=== PATIENT | male | born 1980 | race Caucasian/White ===

== ENCOUNTER → 2018-02-18 | Outpatient (REF) | payer OTHER ==
[2018-02-18 13:16] LABS: PLATELET COUNT, AUTOMATED 190 K/uL (150-450)
== END ==
PROVIDERS: ATTEND Family Medicine
DX: R31.9 Hematuria, unspecified (principal); R42 Dizziness and giddiness
CPT/HCPCS: 82040; 82247; 82310; 82374; 82435; 82565; 82947; 84075; 84132; 84155; 84295; 84450; 84460; 84520; 85025; 87088

== ENCOUNTER → 2018-02-18 | Outpatient (CLI) | payer OTHER ==
--- NOTE | 2018-02-18 14:25 | RADIOLOGY IMAGING REPORT ---
FACILITY: [facility] - [place], [place] PATIENT NAME: Dangelo Pinon : 1980 MR: [id number] V: [id number] EXAM DATE: ORDERING PHYSICIAN: CRISTIANO AGRAWAL TECHNOLOGIST: Location: [facility] [place] Patient: Dangelo Pinon : 1980 Visit/Account:[id number] Date of Sevice: 02/18/2018 CT abdomen and pelvis without and with IV contrast Indication: Hematuria. Right flank pain for one day. Comparison: None available. . Technique: Axial CT images were obtained through the abdomen and pelvis prior to and during injecti on of nonionic iodinated intravenous contrast. Reformatted coronal and sagittal images were also obta ined. One of the following dose optimization techniques was utilized in the performance of this exam: Autom ated exposure control; adjustment of the mA and/or kV according to the patient's size; or use of an i terative reconstruction technique. Specific details can be referenced in the facility's radiology C T exam operational policy. Contrast: 75 ml of Isovue-370 IV contrast. Findings: Lower lung otoole: Limited views lower lung field are unremarkable. Liver: No focal parenchymal abnormality of the liver. Biliary: Gallbladder appears unremarkable as well as the intra and extra hepatic biliary system. Pancreas: Normal appearance. Spleen: Normal appearance. Adrenal glands: Unremarkable. Kidneys / retroperitoneum: There is a 1 to 2 mm stone in each kidney collecting system without hydron ephrosis. No other stones are identified. Both kidneys show normal symmetric enhancement without foca l lesions. The ureters show no dilatation or stones. Bowel / peritoneum / mesenteries: The visualized gastrointestinal tract, including the appendix, with in normal limits. No free air, free fluid, fluid collections or areas of inflammation. Tiny umbilical hernia containing fat. Lymph node assessment: No pathologic adenopathy identified. Pelvic structures: Urinary bladder shows no stones or focal abnormality. There are couple vascular phleboliths present in left side of the pelvis. The remaining pelvic structures visualized within no rmal limits. Vessels: No significant atherosclerotic calcifications seen throughout a nonaneurysmal abdominal aort a and branches. Musculoskeletal / Body wall: No acute or aggressive osseous abnormality. IMPRESSION: 1. Each kidney shows a 1 to 2 mm stone without hydronephrosis. No renal lesions. No abnormality of th e ureters or urinary bladder. I called report to CRISTIANO AGRAWAL at 02/18/2018 2:19 PM. Report Dictated By: Yogi Navarro at 02/18/2018 2:07 PM Report E-Signed By: Yogi Navarro at 02/18/2018 2:20 PM WSN:[id number]
== END ==
LOC: CT 12:40
PROVIDERS: ATTEND Family Medicine
DX: R31.9 Hematuria, unspecified (principal); N20.0 Calculus of kidney
CPT/HCPCS: 74178

== ENCOUNTER → 2018-11-07 | Outpatient (CLI) | payer OTHER ==
--- NOTE | 2018-11-07 12:05 | RADIOLOGY IMAGING REPORT ---
FACILITY: [facility] [place]IENT NAME: Dangelo Pinon : 1980 MR: [id number] V: [id number] EXAM DATE: ORDERING PHYSICIAN: [facility] TECHNOLOGIST: Location: [facility] Patient: Dangelo Pinon : 1980 Visit/Account:[id number] Date of Sevice: 11/07/2018 MR SPINE CERVICAL W/O CON COMPARISON: None Additional pertinent history: Injury in July with neck pain. Technique: Multiplanar multisequence cervical spine MRI was performed without gadolinium enhancement. FINDINGS: Vertebral body height and alignment: Mild reversal of normal cervical lordosis centered at C5-C6. Vertebral marrow signal: Negative Vertebral bodies: Negative Cervical spinal cord signal, craniocervical junction and visualized posterior fossa: Negative Surrounding soft tissues: Negative Inspection of the disc spaces reveal the following: C1-C2: Negative C2-C3: Negative C3-C4: Negative C4-C5: Minimal circumferential disc bulging with facet hypertrophic changes. No significant canal or neural foraminal narrowing. C5-C6: Circumferential disc bulging with facet and uncovertebral degenerative changes. Mild bilatera l neural foraminal narrowing without canal stenosis. C6-C7: Minimal circumferential disc bulging with facet hypertrophic changes. No significant canal or neural foraminal narrowing. C7-T1: Negative Impression: 1. Spondylitic change involving the lower cervical spine as discussed above. 2. Findings contribute to mild bilateral neural foraminal narrowing at C5-C6. 3. No underlying canal stenosis. Report Dictated By: Maycol Wilson MD at 11/07/2018 11:57 AM Report E-Signed By: Maycol Wilson MD at 11/07/2018 12:01 PM WSN:[id number]
== END ==
LOC: MRI 00:48
DX: M47.892 Other spondylosis, cervical region (principal)
CPT/HCPCS: 72141

== ENCOUNTER → 2019-04-18 | Outpatient (CLI) | payer OTHER ==
--- NOTE | 2019-04-18 09:30 | RADIOLOGY IMAGING REPORT ---
FACILITY: [facility] - [place] PATIENT NAME: Dangelo Pinon : 1980 MR: [id number] V: [id number] EXAM DATE: ORDERING PHYSICIAN: KAREEM RAMÍREZ TECHNOLOGIST: Location: [facility] Patient: Dangelo Pinon : 1980 Visit/Account:[id number] Date of Sevice: 04/18/2019 CT ABDOMEN PELVIS W/O CON HISTORY: History of kidney stones TECHNIQUE: Axial images acquired through the abdomen/pelvis. Coronal and sagittal reformatting also performed. No IV contrast administered.Dose Lowering Technique One of the following dose optimization techniques was utilized in the performance of this exam: Autom ated exposure control; adjustment of the mA and/or kV according to the patient's size; or use of an i terative reconstruction technique. Specific details can be referenced in the facility's radiology C T exam operational policy. COMPARISON: February 18, 2018 FINDINGS: Visualized lung bases: Negative. Hepatobiliary: Negative. Spleen: Negative. Adrenals: Negative. Pancreas: Negative. Kidneys ureters and bladder: At least two subtle 1 mm nonobstructing calculi are identified in the ri ght renal collecting system. One nonobstructing 1 mm calculus identified in the left kidney Genitalia: Negative. GI: Negative. Vessels/spaces/nodes: Negative. Bones/soft tissues: Negative. Additional findings: None pertinent. IMPRESSION: Nonobstructing nephrolithiasis bilaterally Report Dictated By: Celia Hoffmann MD at 04/18/2019 8:09 AM Report E-Signed By: Celia Hoffmann MD at 04/18/2019 9:24 AM WSN:[email or web address]
== END ==
LOC: CT 01:07
PROVIDERS: ATTEND Urology
DX: N20.0 Calculus of kidney (principal)
CPT/HCPCS: 74176